=== PATIENT | female | born 1975 | race Two or more races ===

== ENCOUNTER 2025-05-26 09:14 | Outpatient (AMB) | payer MEDICAID, SELFPAY ==
--- NOTE | 2025-05-26 09:23 | PD.GSCLVISIT ---
[facility] 05/26/25 09:24 Height 1.55 m Height Method Measured Weight 89.358 kg Weight Measurement Method Standing Scale BMI 37.2 BP 113/83 Blood Pressure Source Automatic Cuff Blood Pressure Location Left Upper Arm Position Sitting Respiration 18 Pulse 93 Pulse Source Monitor Temp 97.3 F Temp Source Temporal Artery Scan Pulse Oximetry (%) 94 L Oxygen Delivery Method Room Air Med/Allergies Allergies & Medications Allergies No Known Allergies Allergy (Verified 05/26/25 09:25) Medication Reconciliation Unobtainable 05/26/25 [History Confirmed 05/26/25] MA Intake Visit Data Collection New Patient or Established: New Patient (never been to [facility]) Seen by Clinical Staff ONLY (RN/MA): No Reason for Visit:: REFERRAL HERNIA Pain Present Currently: Yes Pain Location: Abdomen Pain scale:: 8 Pain Scale Used: Lion-Tellez/Numerical Scrap Crusher Required: No PCP or OBGYN visit in last 3 months: Yes Hx Now: No Do You Feel Safe at Home: Yes Authorities Contacted: N/A Smoking Status Smoking Status: Never smoker Immunization / Flu Flu Vaccine in the Last 12 Months: Yes Flu Vaccine Exclusion Criteria: Already Received Past Medical History Social History SMOKING STATUS: Smoking status: Never smoker HPI HPI Narrative 50F referred for umbilical hernia. Pt states she first learned she had the hernia in Oct of this year when she was undergoing imaging, and states that she has pain to the area daily. Pt reports her pain is most prominent to the right of the umbilicus, worsened with movement but she does also have pain at the umbilicus itself. She also reports having episodes of the hernia feeling firm and associated nausea/vomiting. She had been scheduled for surgery in [place] but due to insurance issues was unable to follow up with that provider. Her PCP has ordered a CT AP for evaluation and is pending insurance authorization Pt has also undergone workup for pelvic pain with findings of endometrial cysts, and was advised by a multicultural internship that surgery would be warranted. Before the insurance issues came up pt understood that her multicultural internship and general surgeon would be coordinating a joint surgery for the hernia and cysts. She is now awaiting referral to a multicultural internship in [place]. She has never had a colonoscopy PMH: HTN, DMII PSHx: Csection x2 Meds: ASA 81mg, lisinopril, ozempic and metformin (pt states she has lost 100lbs on ozempic) Allergies: NKDA Family hx: No known CRC Social hx: Nonsmoker, no EtOH ROS Review of Systems Systems Reviewed: All systems reviewed, normal except as documented Objective/Exam General General Appearance: alert, cooperative and well groomed Resp Respiratory exam: Absent respiratory distress Abdominal Abdominal exam: Present soft, tenderness (to the right of the umbilicus pt has moderate tenderness) and hernia (small umbilical hernia with tenderness); Absent distention Assessment & Plan Diagnosis / Problem List (1) Umbilical hernia: Status: Acute Assessment & Plan: 50F with HTN, HLD, DMII and symptomatic ovarian cysts presenting with an umbilical hernia. I explained that CT AP will be helpful for determining the size of the hernia and deciding on the appropriate mesh, and I enumerated risks of surgery including hernia recurrence and postoperative infection. I also explained that if she is to have a laparoscopic surgery for the ovarian cysts, the umbilicus would likely be a port site so it would be ideal to coordinate the two cases if possible. We will follow up in a few weeks by which time she should have her CT and also have seen a multicultural internship in [place] Office Procedures GNS Level of Care Nursing/Assessment Patient Status: Initial/New Patient Nursing Assessment/Reassesment: Medication Reconciliation, Update PMH in EMR and Vital Signs Coordination of Care: Complex Care and Chronic Disease 1-5, Consent,records obtained, informed consent, Education Simp Pt/Fam, Results/Orders obtained and Staff clarify orders Special Needs: Language special needs New Patient Charge New Patient Point Assignment: 1089 New Patient Point Charge: DIRECT ENTRY MIDWIFE Level 3 ([id number]) Patient Portal Questionaires Social History Tobacco History Smoking Status: Never smoker Domestic Abuse History Do You Feel Safe at Home: Yes Review of Systems Report any current symptoms Only answer those that you have currently: Past Medical History Past Medical History Have you ever been diagnosed with any of the following:
[2025-05-26 09:24] VITALS: BP 113/83; PULSE 93; RESP 18; TEMP 36.3; O2SAT 94; BMI 37.2
== END 2025-05-26 09:45 | disposition home or self-care (01) ==
LOC: HODSRG 09:14
PROVIDERS: Supervising Provider Surgery; Visit Provider Surgery
DX: K42.9 Umbilical hernia without obstruction or gangrene (principal); N83.209 Unspecified ovarian cyst, unspecified side; I10 Essential (primary) hypertension; E11.9 Type 2 diabetes mellitus without complications
CPT/HCPCS: 99203; G0463

== ENCOUNTER → 2025-06-29 | Outpatient (CLI) | payer MEDICAID, SELFPAY ==
--- NOTE | 2025-06-29 11:00 | XR_ITS ---
Examination: CT abdomen with intravenous contrast CT pelvis with intravenous contrast 2-D coronal reconstructions 2-D sagittal reconstructions Date and time of exam:June 29, 2025, 1108 hours INDICATIONS: Right lower abdominal pain beginning October 2024. CTDI: vol (mGy) 11.6 DLP: (mGycm) 652 Technique: Multiple axial sections of the abdomen and pelvis have been obtained. 64 slice high-resolution scanner used. 3 mm axial sections have been obtained, post intravenous injection 60 cc [id number] 2-D sagittal, coronal reconstructions obtained. Low dose protocols were performed. One or more of the following dose reduction techniques were used; automated exposure control, adjustment of the mA and/or KV according to patient size, use of iterative reconstruction technique. Findings: No focal liver or splenic lesions Distended gallbladder No pancreatic or adrenal mass No renal or ureteral calculi, no hydronephrosis Normal appendix No bowel obstruction Minimal small bowel ileus Enlarged fundus of uterus Urinary bladder intact Advanced degenerative disc disease L5-S1 IMPRESSION: Distended gallbladder, recommend hepatobiliary sonography follow-up Normal appendix Significant enlargement fundus of uterus, recommend pelvic sonography follow-up
== END | disposition home or self-care (01) ==
LOC: CCTX 10:49
PROVIDERS: PCP Physician Assistant; Referring Provider Internal Medicine; Visit Provider Internal Medicine
DX: K82.8 Other specified diseases of gallbladder (principal); N85.8 Other specified noninflammatory disorders of uterus
CPT/HCPCS: 74177; A4649; Q9967

== ENCOUNTER 2025-07-04 10:49 | Outpatient (AMB) | payer MEDICAID, SELFPAY ==
[2025-07-04 11:00] VITALS: BP 106/75; PULSE 92; RESP 18; TEMP 35.9; O2SAT 95; BMI 37.4
--- NOTE | 2025-07-04 11:00 | PD.GSCLVISIT ---
[facility] 07/04/25 11:00 Height 1.55 m Height Method Measured Weight 89.896 kg Weight Measurement Method Standing Scale BMI 37.4 BP 106/75 Blood Pressure Source Automatic Cuff Blood Pressure Location Left Upper Arm Position Sitting Respiration 18 Pulse 92 Pulse Source Monitor Temp 96.7 F L Temp Source Temporal Artery Scan Pulse Oximetry (%) 95 Oxygen Delivery Method Room Air Med/Allergies Allergies & Medications Allergies No Known Allergies Allergy (Verified 07/04/25 11:01) Medication Reconciliation Unobtainable 05/26/25 [History Confirmed 07/04/25] MA Intake Visit Data Collection New Patient or Established: Established Patient (seen at [facility] within 3 years) Seen by Clinical Staff ONLY (RN/MA): No Reason for Visit:: CT RESULTS Pain Present Currently: Yes Pain Location: Abdomen (RLQ) Pain scale:: 8 Pain Scale Used: Lion-Tellez/Numerical Fisheries Manager Required: No PCP or OBGYN visit in last 3 months: Yes Hx Now: No Do You Feel Safe at Home: Yes Authorities Contacted: N/A Smoking Status Smoking Status: Never smoker Immunization / Flu Flu Vaccine in the Last 12 Months: Yes Flu Vaccine Exclusion Criteria: Already Received Past Medical History Social History SMOKING STATUS: Smoking status: Never smoker HPI HPI Narrative 50F here for follow up of umbilical hernia. Since last visit pt states she continues to have pain to the right of her umbilicus, it is constant and worsened with most activities, not relieved by bowel movements and there is some mild improvement with ibuprofen. She underwent CT AP which did not measure the umbilical hernia but it looks fairly small, and otherwise it noted distended gallbladder and enlarged uterus. Pt has not yet heard anything about referral to gynecology ROS Review of Systems Systems Reviewed: All systems reviewed, normal except as documented Objective/Exam General General Appearance: alert, cooperative and well groomed Resp Respiratory exam: Absent respiratory distress Abdominal Abdominal exam: Present soft, tenderness (mild tenderness to right of umbilicus) and hernia (umbilical hernia small defect with mild tenderness to palpation); Absent distention Results CT images and report reviewed Assessment & Plan Diagnosis / Problem List (1) Umbilical hernia: Status: Acute Assessment & Plan: 50F with symptomatic small umbilical hernia, awaiting gynecology referral as she had been previously advised surgery was in order for ovarian cysts and any laparoscopic surgery would likely require an umbilical port site (2) Right-sided abdominal pain of unknown cause: Status: Acute Assessment & Plan: I explained that there is no clear cause of her R sided abdominal pain but as she as not yet had a colonoscopy it is reasonable to pursue, especially as she is awaiting gynecology referral. I explained conscious sedation as well as the benefits/risks of the procedure including bleeding, perforation requiring emergency surgery and the potential for needing to abort prematurely for safety. All questions were answered and pt is agreeable to proceeding Office Procedures GNS Level of Care Nursing/Assessment Patient Status: Established Patient Nursing Assessment/Reassesment: Medication Reconciliation, Orthostatic Vitals, Update PMH in EMR and Vital Signs Coordination of Care: Complex Care and Chronic Disease 1-5, Consent,records obtained, informed consent, Education Simp Pt/Fam, Results/Orders obtained and Staff clarify orders Established Patient Charge Established Patient Point Assignment: 100 Established Patient Point Charge: EP Level 3 (80-115) Patient Portal Questionaires Social History Tobacco History Smoking Status: Never smoker Domestic Abuse History Do You Feel Safe at Home: Yes Review of Systems Report any current symptoms Only answer those that you have currently: Past Medical History Past Medical History Have you ever been diagnosed with any of the following:
== END 2025-07-04 11:12 | disposition home or self-care (01) ==
LOC: HODSRG 10:49
PROVIDERS: Supervising Provider Surgery; Visit Provider Surgery
DX: K42.9 Umbilical hernia without obstruction or gangrene (principal); R10.9 Unspecified abdominal pain
CPT/HCPCS: 99213; G0463

== ENCOUNTER 2025-08-09 08:56 | Day surgery (SDC) | payer MEDICAID, SELFPAY ==
[2025-08-08 12:53] LABS: HCG Qualitative,Urine Negative
[2025-08-09] VITALS (10 sets, daily range): BP systolic 88–133; BP diastolic 44–95; PULSE 70–81; RESP 13–20; TEMP 36.8; O2SAT 92–98; BMI 38.1
[2025-08-09] MEDS: RINGERS LACTATED 500 ML 500 ML 20 ML IV (09:28)
[2025-08-09] MEDS: MIDAZOLAM INJ 1 MG/ML VIAL 2 ML (ASD USE ONLY) 2 MG IVP (09:36)
[2025-08-09] MEDS: fentaNYL CIT INJ 50 mCg/ML AMP 2ML (ASD USE ONLY) IVP (09:36)
== END 2025-08-09 10:35 | disposition home or self-care (01) ==
PROVIDERS: PCP Physician Assistant; Referring Provider Surgery; Visit Provider Surgery
PROC: 0DBE8ZX Excision of Large Intestine, Via Natural or Artificial Opening Endoscopic, Diagnostic (ICD-10-PCS; CPT 45380; principal; 2025-08-09 08:45)
DX: K64.8 Other hemorrhoids (principal); R10.31 Right lower quadrant pain; K64.4 Residual hemorrhoidal skin tags
CPT/HCPCS: 45378; 81025; A4649; J1200; J2250; J3010; J7120

== ENCOUNTER 2025-08-22 13:42 | Outpatient (AMB) | payer MEDICAID, SELFPAY ==
--- NOTE | 2025-08-22 14:22 | PD.GSCLVISIT ---
[facility] 08/22/25 14:23 Height 1.55 m Height Method Measured Weight 90.832 kg Weight Measurement Method Standing Scale BMI 37.8 BP 110/74 Blood Pressure Source Automatic Cuff Blood Pressure Location Left Upper Arm Position Sitting Respiration 18 Pulse 84 Pulse Source Monitor Temp 97.0 F Temp Source Temporal Artery Scan Pulse Oximetry (%) 94 L Oxygen Delivery Method Room Air Med/Allergies Allergies & Medications Allergies No Known Allergies Allergy (Verified 08/22/25 14:24) Medication Reconciliation aspirin 81 mg tablet,delayed release 81 mg PO QDAY 08/09/25 [History Confirmed 08/22/25] glipizide 10 mg tablet 10 mg PO BID 08/09/25 [History Confirmed 08/22/25] indomethacin 50 mg capsule 50 mg PO BID 08/09/25 [History Confirmed 08/22/25] lisinopril 10 mg tablet 10 mg PO QDAY 08/09/25 [History Confirmed 08/22/25] loratadine 10 mg tablet 10 mg PO QDAY 08/09/25 [History Confirmed 08/22/25] metformin 1,000 mg tablet 1,000 mg PO BID 08/09/25 [History Confirmed 08/22/25] montelukast 10 mg tablet 10 mg PO QDAY 08/09/25 [History Confirmed 08/22/25] rimegepant 75 mg disintegrating tablet (Nurtec ODT) 75 mg PO UD 08/09/25 [History Confirmed 08/22/25] MA Intake Visit Data Collection New Patient or Established: Established Patient (seen at [facility] within 3 years) Seen by Clinical Staff ONLY (RN/MA): No Reason for Visit:: COLONOSCOPY F/U Pain Present Currently: No Pain Scale Used: Lion-Tellez/Numerical Scientific Affairs Manager Required: No PCP or OBGYN visit in last 3 months: Yes Hx Now: No Do You Feel Safe at Home: Yes Authorities Contacted: N/A Smoking Status Smoking Status: Never smoker Immunization / Flu Flu Vaccine in the Last 12 Months: Yes Flu Vaccine Exclusion Criteria: Already Received Past Medical History Past Medical History NEUROLOGIC: Positive Neurological Disorders and Migraine; Negative Seizures CARDIAC: Positive Cardiac Disorders, Hypercholesterolemia and Hypertension; Negative Congestive Heart Failure RESPIRATORY: Negative Chronic Obstructive Pulmonary Disease (COPD) GASTROINTESTINAL: Positive Gastrointestinal Disorders (Abdominal pain) GENITOURINARY: Negative Genitourinary Disorders or Renal Disease MUSCULOSKELETAL: Positive Arthritis and Osteoporosis (bilateral knees) ENDOCRINE: Positive Diabetes Mellitus Type 2; Negative Diabetes Mellitus Type 1 HEMATOLOGIC: Negative Blood Disorders OTHER HISTORY: Negative Autoimmune Disease, Blood Transfusions, Blood Transfusion Reaction or Anesthesia Reactions Family History FAMILY HISTORY: Negative Family Cardiac Disorders Surgical History SURGICAL: Positive Section (x2) Social History SMOKING STATUS: Smoking status: Never smoker ALCOHOL: Alcohol Intake: Never HOUSING: Housing: House Office Procedures GNS Level of Care Nursing/Assessment Patient Status: Established Patient Nursing Assessment/Reassesment: Medication Reconciliation, Update PMH in EMR and Vital Signs Coordination of Care: Complex Care and Chronic Disease 1-5, Education Complex Pt/Fam, Consent,records obtained, informed consent, Results/Orders obtained and Staff clarify orders Established Patient Charge Established Patient Point Assignment: 95 Established Patient Point Charge: EP Level 3 (80-115) Patient Portal Questionaires Social History Living Situation History Housing: House Tobacco History Smoking Status: Never smoker Alcohol History Alcohol Intake: Never Domestic Abuse History Do You Feel Safe at Home: Yes Review of Systems Report any current symptoms Only answer those that you have currently: Past Medical History Past Medical History Have you ever been diagnosed with any of the following: Neurological Problems Seizures: No Migraine: Yes Cardiology Problems Hypercholesterolemia: Yes Congestive Heart Failure: No Hypertension: Yes Respiratory Problems Chronic Obstructive Pulmonary Disease (COPD): No Genital/Urinary Problems Renal Disease: No Musculoskeletal Problems Arthritis: Yes Osteoporosis: Yes (bilateral knees) Endocrine Problems Diabetes Mellitus Type 1: No Diabetes Mellitus Type 2: Yes Other Problems Autoimmune Disease: No Blood Transfusions: No Blood Transfusion Reaction: No Anesthesia Reactions: No
[2025-08-22 14:23] VITALS: BP 110/74; PULSE 84; RESP 18; TEMP 36.1; O2SAT 94; BMI 37.8
== END 2025-08-22 15:20 | disposition home or self-care (01) ==
LOC: HODSRG 13:42
PROVIDERS: Supervising Provider Surgery; Visit Provider Surgery
DX: Z53.21 Procedure and treatment not carried out due to patient leaving prior to being seen by health care provider (principal)
CPT/HCPCS: 99213; G0463

== ENCOUNTER 2025-09-19 09:34 | Outpatient (AMB) | payer MEDICAID, SELFPAY ==
--- NOTE | 2025-09-19 09:40 | PD.GSCLVISIT ---
[facility] - [facility] 09/19/25 09:41 Height 1.55 m Height Method Measured Weight 94.347 kg Weight Measurement Method Standing Scale BMI 39.2 BP 109/75 Blood Pressure Source Automatic Cuff Blood Pressure Location Left Upper Arm Position Sitting Respiration 18 Pulse 75 Pulse Source Monitor Temp 96.7 F L Temp Source Temporal Artery Scan Pulse Oximetry (%) 97 Oxygen Delivery Method Room Air Med/Allergies Allergies & Medications Allergies No Known Allergies Allergy (Verified 09/19/25 09:45) Medication Reconciliation aspirin 81 mg tablet,delayed release 81 mg PO QDAY 08/09/25 [History Confirmed 09/19/25] glipizide 10 mg tablet 10 mg PO BID 08/09/25 [History Confirmed 09/19/25] indomethacin 50 mg capsule 50 mg PO BID 08/09/25 [History Confirmed 09/19/25] lisinopril 10 mg tablet 10 mg PO QDAY 08/09/25 [History Confirmed 09/19/25] loratadine 10 mg tablet 10 mg PO QDAY 08/09/25 [History Confirmed 09/19/25] metformin 1,000 mg tablet 1,000 mg PO BID 08/09/25 [History Confirmed 09/19/25] montelukast 10 mg tablet 10 mg PO QDAY 08/09/25 [History Confirmed 09/19/25] rimegepant 75 mg disintegrating tablet (Nurtec ODT) 75 mg PO UD 08/09/25 [History Confirmed 09/19/25] MA Intake Visit Data Collection New Patient or Established: Established Patient (seen at [facility] within 3 years) Seen by Clinical Staff ONLY (RN/MA): No Reason for Visit:: F/U COLON Pain Present Currently: No Pain Scale Used: Lion-Tellez/Numerical Rehabilitation Teacher Required: No PCP or OBGYN visit in last 3 months: Yes Hx Now: No Do You Feel Safe at Home: Yes Authorities Contacted: N/A Smoking Status Smoking Status: Never smoker Immunization / Flu Flu Vaccine in the Last 12 Months: Yes Flu Vaccine Exclusion Criteria: Already Received Past Medical History Past Medical History NEUROLOGIC: Positive Neurological Disorders and Migraine; Negative Seizures CARDIAC: Positive Cardiac Disorders, Hypercholesterolemia and Hypertension; Negative Congestive Heart Failure RESPIRATORY: Negative Chronic Obstructive Pulmonary Disease (COPD) GASTROINTESTINAL: Positive Gastrointestinal Disorders (Abdominal pain) GENITOURINARY: Negative Genitourinary Disorders or Renal Disease MUSCULOSKELETAL: Positive Arthritis and Osteoporosis (bilateral knees) ENDOCRINE: Positive Diabetes Mellitus Type 2; Negative Diabetes Mellitus Type 1 HEMATOLOGIC: Negative Blood Disorders OTHER HISTORY: Negative Autoimmune Disease, Blood Transfusions, Blood Transfusion Reaction or Anesthesia Reactions Family History FAMILY HISTORY: Negative Family Cardiac Disorders Surgical History SURGICAL: Positive Section (x2) Social History SMOKING STATUS: Smoking status: Never smoker ALCOHOL: Alcohol Intake: Never HOUSING: Housing: House HPI HPI Narrative 50F here for follow up of colonoscopy done in Jul 2025 which was normal aside from hemorrhoids. Pt denies having any hemorrhoid symptoms and overall feels very well with no complaints. She has an appt with gynecology on 09/28 to discuss possible surgery ROS Review of Systems Systems Reviewed: All systems reviewed, normal except as documented Objective/Exam General General Appearance: alert, cooperative and well groomed Resp Respiratory exam: Absent respiratory distress Results Colonoscopy report reviewed and copy provided to pt Assessment & Plan Diagnosis / Problem List (1) Encounter to discuss colonoscopy results: Status: Acute Assessment & Plan: 50F s/p screening colonoscopy 07/2025 which was negative aside from hemorrhoids, next screening due in 10 years (2) Umbilical hernia: Status: Acute Assessment & Plan: As pt may need uterine surgery which would likely involve an umbilical incision, pt will call after her gynecology appt so that procedures can potentially be combined Office Procedures GNS Level of Care Nursing/Assessment Patient Status: Established Patient Nursing Assessment/Reassesment: Medication Reconciliation, Update PMH in EMR and Vital Signs Coordination of Care: Complex Care and Chronic Disease 1-5, Education Complex Pt/Fam, Consent,records obtained, informed consent, Results/Orders obtained and Staff clarify orders Established Patient Charge Established Patient Point Assignment: 95 Established Patient Point Charge: EP Level 3 (80-115) Patient Portal Questionaires Social History Living Situation History Housing: House Tobacco History Smoking Status: Never smoker Alcohol History Alcohol Intake: Never Domestic Abuse History Do You Feel Safe at Home: Yes Review of Systems Report any current symptoms Only answer those that you have currently: Past Medical History Past Medical History Have you ever been diagnosed with any of the following: Neurological Problems Seizures: No Migraine: Yes Cardiology Problems Hypercholesterolemia: Yes Congestive Heart Failure: No Hypertension: Yes Respiratory Problems Chronic Obstructive Pulmonary Disease (COPD): No Genital/Urinary Problems Renal Disease: No Musculoskeletal Problems Arthritis: Yes Osteoporosis: Yes (bilateral knees) Endocrine Problems Diabetes Mellitus Type 1: No Diabetes Mellitus Type 2: Yes Other Problems Autoimmune Disease: No Blood Transfusions: No Blood Transfusion Reaction: No Anesthesia Reactions: No
[2025-09-19 09:41] VITALS: BP 109/75; PULSE 75; RESP 18; TEMP 35.9; O2SAT 97; BMI 39.2
== END 2025-09-19 09:53 | disposition home or self-care (01) ==
LOC: HODSRG 09:34
PROVIDERS: Supervising Provider Surgery; Visit Provider Surgery
DX: Z71.2 Person consulting for explanation of examination or test findings (principal); K64.9 Unspecified hemorrhoids; K42.9 Umbilical hernia without obstruction or gangrene; I10 Essential (primary) hypertension; E11.9 Type 2 diabetes mellitus without complications; Z79.84 Long term (current) use of oral hypoglycemic drugs
CPT/HCPCS: 99213; G0463

== ENCOUNTER 2025-09-28 09:37 | Outpatient (AMB) | payer MEDICAID, SELFPAY ==
[2025-09-28 10:27] VITALS: BP 109/72; PULSE 83; RESP 16; TEMP 36.3; O2SAT 96; BMI 38.7
--- NOTE | 2025-09-28 10:27 | AMB.GYNCLNOT ---
Vital Signs 09/28/25 10:27 Height 1.55 m Height Method Stated Weight 92.986 kg Weight Measurement Method Standing Scale BMI 38.7 BP 109/72 Blood Pressure Source Automatic Cuff Blood Pressure Location Left Upper Arm Position Sitting Respiration 16 Pulse 83 Pulse Source Monitor Temp 97.3 F Temp Source Oral Pulse Oximetry (%) 96 Oxygen Delivery Method Room Air Allergies/Home Meds Allergies & Medications Allergies No Known Allergies Allergy (Verified 09/28/25 10:29) Medication Reconciliation aspirin 81 mg tablet,delayed release 81 mg PO QDAY 08/09/25 [History Confirmed 09/28/25] glipizide 10 mg tablet 10 mg PO BID 08/09/25 [History Confirmed 09/28/25] indomethacin 50 mg capsule 50 mg PO BID 08/09/25 [History Confirmed 09/28/25] lisinopril 10 mg tablet 10 mg PO QDAY 08/09/25 [History Confirmed 09/28/25] loratadine 10 mg tablet 10 mg PO QDAY 08/09/25 [History Confirmed 09/28/25] metformin 1,000 mg tablet 1,000 mg PO BID 08/09/25 [History Confirmed 09/28/25] montelukast 10 mg tablet 10 mg PO QDAY 08/09/25 [History Confirmed 09/28/25] rimegepant 75 mg disintegrating tablet (Nurtec ODT) 75 mg PO UD 08/09/25 [History Confirmed 09/28/25] Intake Visit Data Collection New Patient or Established: Established Patient (seen at [facility] within 3 years) Reason for Visit:: REFERRAL LEIOMYOMA Seen by Clinical Staff ONLY (RN/MA): No [employer]orer [employer] Required: No Do You Feel Safe at Home: Yes Authorities Contacted: N/A PCP or OBGYN visit in last 3 months: Yes Hx Now: No Are you currently on any form of Control: Yes Last menstrual period: 09/23/25 Pain Present Currently: No Pain Scale Used: Lion-Tellez/Numerical Pain scale:: 0 Smoking Status Smoking Status: Never smoker Immunizations Flu Vaccine in the Last 12 Months: Yes Flu Vaccine Exclusion Criteria: Already 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 Menstrual regularity: regular Flow: normal Monthly: Yes How many days does period last: 8 Age at menarche: 14 Currently sexually active: Yes AUTOMOTIVE GLASS SPECIALIST: Past Medical History Past Medical History: Yes Hx Neurological Disorders, Yes Hx Cardiac Disorders, Yes Hx Hypertension, No Hx Blood Disorders, Yes Hx Gastrointestinal Disorders (Abdominal pain), No Hx Renal Disease, No Hx Diabetes Mellitus Type 1 and Yes Hx Diabetes Mellitus Type 2 Questionnaires Covid-19 Vaccine Questionnaire Has patient been vacinated for Covid-19 Have you been vacinated for Covid-19: Yes PHQ-9 PHQ-2 Over the last 2 weeks, how often have you been bothered by any of the following problems? 1. Little interest or pleasure in doing things: not at all 2. Feeling down, depressed, or hopeless: not at all Total score: 0 PHQ-9 3. Trouble falling or staying asleep, or sleeping too much: Not at all 4. Feeling tired or having little energy: Not at all 5. Poor appetite or overeating: Not at all 6. Feeling bad about yourself - or that you are a failure or have let yourself or your family down: Not at all 7. Trouble concentrating on things, such as reading the newspaper or watching television: Not at all 8. Moving or speaking so slowly that other people could have noticed? - Or the opposite - being so fidgety or restless that you have been moving around a lot more than usual: not at all 9. Thoughts that you would be better off or of hurting yourself in some way: Not at all Total score: 0 Source: Developed by Drs. Christopher Diaz, Madeleine Dixon, Jerome Jay and colleagues, with an educational florentin from [employer]. Depression screen completed yes Social History Living Situation History Marital Status: Lives With: Family Housing: House Tobacco History Smoking Status: Never smoker Second Hand Smoke Exposure: No Alcohol History Alcohol Intake: Never Domestic Abuse History Do You Feel Safe at Home: Yes History of Present Illness HPI Narrative Allegra Best is a 50-year-old female with a history of diabetes mellitus, hyperlipidemia, hypertension, chronic allergies, and lumbosacral disc disease presenting for consultation regarding possible ovarian leiomyoma, with complaints of pelvic pain, abnormal bleeding, and a suspected uterine mass. The patient reports pelvic pain, bleeding, and a mass on the uterus that is suspected to be a fibroid. She has a significant history of uterine fibroids, having undergone removal of three fibroids in 2000. Prior to that surgical intervention, she experienced severe pain and heavy bleeding during her periods that was so debilitating it sometimes required the use of a wheelchair. Previous attempts at medical management with medication to shrink the fibroids were ineffective. Recently, Allegra experienced an episode of bleeding after having gone a full year without periods. She was referred from [facility] for evaluation of leiomyoma of uterus, pelvic pain, abnormal bleeding, and umbilical hernia with obstruction without gangrene. The patient has been taking metformin, glypezide, atorvastatin, lisinopril, aspirin, loratadine, montelukast, and indomethacin for various medical conditions and reports being compliant with her medical regimen. She has a family history significant for cervical cancer. ROS: Gastrointestinal: Positive for abdominal pain. Genitourinary: Positive for pelvic pain, abnormal bleeding. - CT abdomen and pelvis (06-29-2025): No focal liver or splenic lesions, distended gallbladder, no pancreatic or adrenal mass, no renal or ureteral calculi, no hydronephrosis, normal appendix, no bowel obstruction, minimal small bowel ileus, enlarged fundus of uterus, urinary bladder intact, advanced degenerative disc disease Exam General General Appearance: alert, in no apparent distress and healthy appearing Head Head exam: atraumatic Neck Neck exam: Present normal inspection and trachea midline Chest Chest inspection: Present normal inspection and symmetric chest wall rise External exam: Present normal external exam; Absent tenderness Neuro Neurological exam: Present oriented X3 Psych Psychiatric exam: Present normal affect and normal mood Office Procedures [facility] LOC & Office Proc's Nursing/Assessment Patient Status: Established Patient OB Clinic Nursing Assessment: Medication Reconciliation, Update PMH in EMR and Vital Signs OB Clinic Coordination of Care: Complex Care and Chronic Disease 1-5, Consent,records obtained, informed consent, Education Simp Pt/Fam, 1 Ins Authorization, Lab and Imaging orders, Results/Orders obtained and Staff clarify orders Established Patient Charge Established Patient Point Assignment: 120 Established Patient Point Charge: EP Level 4 (120-155) Assessment & Plan Diagnosis / Problem List (1) Pelvic mass in female: Status: Acute Plan Uterine leiomyoma: - Suspected uterine fibroids causing pelvic pain and abnormal bleeding. - History significant for prior fibroid removal in 2000 when three fibroids were surgically removed due to severe pain and heavy bleeding requiring wheelchair use during periods. - Previous medical management to shrink fibroids was ineffective. - Recent CT abdomen and pelvis from 06-29-2025 demonstrated enlarged fundus of uterus. Plan: - Order further imaging including ultrasound and MRI to assess fibroids and other organs. - Surgical intervention planned involving removal of uterus and possibly ovaries if they appear abnormal. - Coordinate with Dr. Carvajal for surgery. - Process imaging orders and schedule appointments. - Contact patient with appointment details. Pelvic pain: - Ongoing pelvic pain in the setting of suspected uterine fibroids. - Pain appears related to underlying uterine pathology given history of severe pain with previous fibroids requiring wheelchair use during menstrual periods. Plan: - Address through surgical management as outlined above for uterine leiomyoma. Abnormal uterine bleeding: - Abnormal bleeding with recent episode occurring after one year without periods. - Bleeding pattern consistent with fibroid-related menorrhagia based on history of heavy bleeding with previous fibroids. Plan: - Address through surgical management as outlined above for uterine leiomyoma. Umbilical hernia with obstruction: - Umbilical hernia with obstruction without gangrene. Plan: - No specific plan discussed for hernia management during this visit.
== END 2025-09-28 10:51 | disposition home or self-care (01) ==
LOC: HODSOBC 09:37
PROVIDERS: Supervising Provider Obstetrics & Gynecology; Visit Provider Obstetrics & Gynecology
DX: R19.09 Other intra-abdominal and pelvic swelling, mass and lump (principal); E11.9 Type 2 diabetes mellitus without complications; I10 Essential (primary) hypertension; E78.5 Hyperlipidemia, unspecified; Z87.42 Personal history of other diseases of the female genital tract; Z79.84 Long term (current) use of oral hypoglycemic drugs; Z79.82 Long term (current) use of aspirin; Z79.899 Other long term (current) drug therapy
CPT/HCPCS: 99214; G0463